=== PATIENT | male | born 1940 | race Native Hawaiian/Other Pacific Islander ===

== ENCOUNTER 2020-08-29 13:50 | Outpatient (CLI) | payer OTHER, MEDICARE | END 2020-08-29 22:50 | disposition home or self-care (01) | LOC: MRI 13:50 | PROVIDERS: ATTEND Neurological Surgery | DX: M25.511 Pain in right shoulder (principal); M54.12 Radiculopathy, cervical region ==

== ENCOUNTER 2021-02-26 12:27 | Outpatient (CLI) | payer OTHER, MEDICARE | END 2021-02-26 20:27 | disposition home or self-care (01) | LOC: RAD 12:27 | PROVIDERS: ATTEND Nurse Practitioner Family | DX: J20.9 Acute bronchitis, unspecified (principal) ==